=== PATIENT | female | born 1990 | race Caucasian/White ===

== ENCOUNTER 2021-03-30 04:26 | Emergency (ER) | payer MEDICARE, OTHER ==
[~2021-03-30] VITALS: Ht 162.6 cm; Wt 59.0 kg
--- NOTE | 2021-03-30 04:35 | NUR ---
pt bibself c/o lower back pain since s/p bending down to put leash on dog. Took 600mg ibuprofen, no relief. nonambulatory at this time. A/Ox4. tolerating room air well with no SOB. VSS.
[2021-03-30] MEDS ORDERED: DEXAMETHASONE SOD PHOSPHATE 4 MG/ML VIAL IM ONE (05:00)
[2021-03-30] MEDS ORDERED: CARISOPRODOL 350 MG TABLET PO ONE (05:00)
[2021-03-30] MEDS ORDERED: KETOROLAC TROMETHAMINE INJ 60 MG/2 ML VIAL IM ONE ×2 (05:00→05:10)
[2021-03-30] MEDS ORDERED: PRED50TA PO (05:06)
[2021-03-30] MEDS ORDERED: CARISOPRODOL 350 MG TABLET ONE (05:10)
[2021-03-30] MEDS ORDERED: DEXAMETHASONE SOD PHOSPHATE 4 MG/ML VIAL ONE ×2 (05:10→05:17)
--- NOTE | 2021-03-30 06:01 | NUR ---
Patient discharged to home in stable condition. Written and verbal after care instructions given. Patient verbalizes understanding of instruction. Prescriptions given to patient and patient verbalized understanding. Patient d/c via w/c. VSS
[2021-03-30 06:03] VITALS: BP 110/71
== END 2021-03-30 06:04 | disposition home or self-care (01) ==
LOC: ER 04:43
DX: M54.5 Low back pain (principal); F41.9 Anxiety disorder, unspecified; M32.9 Systemic lupus erythematosus, unspecified; Z88.6 Allergy status to analgesic agent; Z88.8 Allergy status to other drugs, medicaments and biological substances; Z60.2 Problems related to living alone; Z79.899 Other long term (current) drug therapy
CPT/HCPCS: 96372 ×2; 99284; J1100 ×2; J1885